=== PATIENT | female | born 1990 | race African-American/Black ===

== ENCOUNTER 2023-01-27 06:03 | Emergency (ER) | payer MEDICAID, OTHER ==
[~2023-01-27] VITALS: Ht 175.3 cm; Wt 87.0 kg
[2023-01-27] MEDS ORDERED: BENZ1LOZ73 PO (06:54)
[2023-01-27] MEDS ORDERED: KETOROLAC 30MG/ML VIAL IM ONE (07:00)
[2023-01-27 07:02] VITALS: BP 148/100
== END 2023-01-27 07:00 | disposition home or self-care (01) ==
LOC: ER 06:03
DX: J02.9 Acute pharyngitis, unspecified (principal)
CPT/HCPCS: 96372; 99283; J1885; Z7610